=== PATIENT | female | born 2000 | race African-American/Black ===

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

== ENCOUNTER 2018-10-03 07:26 | Emergency (ER) | payer BC, MEDICAID, OTHER ==
[2018-10-03] MEDS ORDERED: Ondansetron PF 4 MG/2 ML Vial ONE (08:03)
[2018-10-03 08:43] LABS: #Basophils 0.1 thou/uL (0.0-0.2); #Eosinphils 0.1 thou/uL (0.0-0.7); #Neutrophils 9.9 thou/uL (1.40-6.50); %Basophils 0.9 % (0.0-1.0); %Eosinophils 0.9 % (0.0-10.0); %Lymphocytes 15.5 % (28.0-48.0); %Monocytes 7.5 % (0.0-4.0); %Neutrophils 75.3 % (31.0-61.0); Hemoglobin 11.9 g/dL (12.0-16.0); Mean Corpuscular HGB CONC 33.2 g/dL (32.0-36.0); Mean Corpuscular Hemoglobin 29.3 pg (25.0-35.0); Mean Corpuscular Volume 88.3 fL (78.0-98.0); Mean Platelet Volume 7.7 fL (7.4-10.4); Platelet Count 329 thou/uL (130-400); Red Blood Cell (RBC) Count 4.05 mill/uL (4.00-5.20); White Blood Cell (WBC) Count 13.1 thou/uL (4.8-10.8)
[2018-10-03 08:56] LABS: ALT (SGPT) 29 U/L (8-55); AST (SGOT) 24 U/L (5-34); Albumin 4.2 g/dL (3.5-5.0); Alkaline Phosphatase 42 U/L (40-150); Anion Gap 14 mmol/L (10-20); BUN (Urea Nitrogen) 8 mg/dL (7.0-18.7); Bilirubin, Total 0.3 mg/dL (0.2-1.2); Calc. Creatinine Clearance 0 mL/min (70-130); Calcium 9.8 mg/dL (7.8-10.44); Carbon Dioxide 24 mmol/L (22-29); Chloride 102 mmol/L (98-107); Estimated GFR-MDRD Greater than 90; Globulin 3.2 g/dL (2.4-3.5); Glucose 88 mg/dL (70-105); Potassium 3.9 mmol/L (3.5-5.1); Protein, Total 7.4 g/dL (6.0-8.3); Sodium 136 mmol/L (136-145)
[2018-10-03 09:18] LABS: Bilirubin Negative (Negative); Blood, Urine Negative (Negative); Clarity Clear (Clear); Glucose, Urine (Dipstick) Negative (Negative); Leukocyte Negative (Negative); Nitrite Negative (Negative); Protein, Urine (Dipstick) Negative (Neg-Trace); Specific Gravity, Urine 1.015 (1.005-1.030); Urobilinogen 0.2 mg/dL (0.2-1.0)
--- NOTE | 2018-10-03 09:26 | ULT ---
OBSTETRICAL SONOGRAPHIC: HISTORY: Early . Pelvic pain. TECHNIQUE: Transabdominal and transvaginal imaging with duplex evaluation. FINDINGS: The urinary bladder is decompressed. The uterus measures up to 8.7 cm and contains a gestational sac with a small yolk sac. No pole is yet visible. Measurements correlate with 6 weeks 4 days gestational size. Estimated date of delivery is 9. No free fluid is apparent within the pelvis. The right ovary is 3 cm and the left is 3.8 cm. Each h as a normal appearance with good color and spectral Doppler flow. IMPRESSION: Single, very early intrauterine gestational sac. pole not yet visible. Measurements correlate with 6 weeks' 4 days' gestational age. No significant abnormalities are demonstrated. POS: [facility]
== END 2018-10-03 10:06 | disposition home or self-care (01) ==
LOC: SCSER 07:26
DX: O21.9 Vomiting of pregnancy, unspecified (principal); O99.341 Other mental disorders complicating pregnancy, first trimester; F41.9 Anxiety disorder, unspecified; O99.351 Diseases of the nervous system complicating pregnancy, first trimester; G43.909 Migraine, unspecified, not intractable, without status migrainosus; Z3A.01 Less than 8 weeks gestation of pregnancy
CPT/HCPCS: 36415; 76856; 80053; 81003; 84702; 85025; 96361; 96374; J2405

== ENCOUNTER 2018-10-11 17:55 | Emergency (ER) | payer OTHER ==
[2018-10-11 18:56] LABS: Bilirubin Negative (Negative); Blood, Urine Negative (Negative); Clarity Slightly Cloudy (Clear); Glucose, Urine (Dipstick) Negative (Negative); Leukocyte Negative (Negative); Nitrite Negative (Negative); Protein, Urine (Dipstick) Negative (Neg-Trace); Specific Gravity, Urine 1.025 (1.005-1.030)
[2018-10-11 19:16] LABS: #Basophils 0.1 thou/uL (0.0-0.2); #Eosinphils 0.1 thou/uL (0.0-0.7); #Lymphocytes 2.7 thou/uL (1.20-3.40); #Monocytes 1.3 thou/uL (0.11-0.59); #Neutrophils 12.1 thou/uL (1.40-6.50); %Basophils 0.7 % (0.0-1.0); %Eosinophils 0.7 % (0.0-10.0); %Lymphocytes 16.4 % (28.0-48.0); %Monocytes 7.7 % (0.0-4.0); %Neutrophils 74.4 % (31.0-61.0); Hemoglobin 11.8 g/dL (12.0-16.0); Mean Corpuscular HGB CONC 33.6 g/dL (32.0-36.0); Mean Corpuscular Hemoglobin 29.7 pg (25.0-35.0); Mean Corpuscular Volume 88.3 fL (78.0-98.0); Mean Platelet Volume 8.9 fL (7.4-10.4); Platelet Count 316 thou/uL (130-400); RBC Distribution Width 14.1 % (11.5-14.5); Red Blood Cell (RBC) Count 3.98 mill/uL (4.00-5.20); White Blood Cell (WBC) Count 16.3 thou/uL (4.8-10.8)
--- NOTE | 2018-10-11 20:28 | ULT ---
PELVIC ULTRASOUND: 10/11/18 Transabdominal ultrasound of pelvis performed. INDICATIONS: Vaginal spotting. FINDINGS: There is a viable intrauterine . A gestational sac is identified. A pole is identified . A yolk sac is identified. A crown-rump length indicates a 7 week, 0 day gestational age. A he art rate is recorded at 150 beats per minute. There is a myometrial prominence which impinges on the gestational sac suggesting a myometrial fibroi d. There is an area of hypoechogenicity seen along the posterior border of the gestational sac measuring approximately 1 to 2 cm which may represent a small area of subchorionic hemorrhage. Both maternal ovaries are identified and appear unremarkable. Color doppler and spectral analysis dem onstrates blood flow to both ovaries. IMPRESSION: 1. A viable intrauterine gestation. [place]-rump length indicates a 7 week, 0 day gestational age. 2. Hypoechoic area may represent a small subchorionic hemorrhage. 3. Evidence of a myometrial fibroid which produces some mass effect on the gestational sac. POS: [facility]
== END 2018-10-11 20:04 | disposition home or self-care (01) ==
LOC: SCSER 17:55
DX: O20.0 Threatened abortion (principal); O99.351 Diseases of the nervous system complicating pregnancy, first trimester; G43.909 Migraine, unspecified, not intractable, without status migrainosus; O99.341 Other mental disorders complicating pregnancy, first trimester; F41.9 Anxiety disorder, unspecified; Z3A.01 Less than 8 weeks gestation of pregnancy
CPT/HCPCS: 36415; 76805; 76815; 81003; 84702; 85025; 86900; 86901

== ENCOUNTER 2019-05-01 03:56 | Observation (INO) | payer OTHER ==
[2019-05-01 04:37] LABS: ALT (SGPT) 15 U/L (8-55); AST (SGOT) 18 U/L (5-34); Albumin 3.3 g/dL (3.5-5.0); Alkaline Phosphatase 123 U/L (40-150); Anion Gap 15 mmol/L (10-20); BUN (Urea Nitrogen) 4 mg/dL (7.0-18.7); Bilirubin, Total 0.3 mg/dL (0.2-1.2); Calc. Creatinine Clearance 0 mL/min (70-130); Calcium 8.6 mg/dL (7.8-10.44); Carbon Dioxide 21 mmol/L (22-29); Chloride 105 mmol/L (98-107); Estimated GFR-MDRD Greater than 90; Glucose 97 mg/dL (70-105); Potassium 3.5 mmol/L (3.5-5.1); Protein, Total 6.3 g/dL (6.0-8.3); Sodium 137 mmol/L (136-145)
[2019-05-01 04:40] LABS: Eosinophils 1 % (0-10); Hemoglobin 9.8 g/dL (12.0-16.0); Lymphocytes 11 % (21-51); MDiff Complete? YES; Mean Corpuscular HGB CONC 33.1 g/dL (32.0-36.0); Mean Corpuscular Hemoglobin 29.5 pg (27.0-31.0); Mean Corpuscular Volume 89.2 fL (78.0-98.0); Mean Platelet Volume 8.6 fL (7.4-10.4); Monocytes 4 % (0-10); Neutrophil 84 % (42-75); Platelet Count 248 thou/uL (130-400); RBC Distribution Width 14.3 % (11.5-14.5); White Blood Cell (WBC) Count 13.1 thou/uL (4.8-10.8)
[2019-05-01 05:19] VITALS: BP 126/76; TEMP 98.4; BMI 32.2
[2019-05-01] MEDS ORDERED: hydrALAZINE 20 MG/ML VIAL SLOW IVP PRN (05:47)
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
== END 2019-05-01 11:00 | disposition home health service (06) ==
LOC: SCSER 03:56 → EEVIPCON 03:56 → L&D 04:15
PROVIDERS: ADMIT Obstetrics & Gynecology; ATTEND Obstetrics & Gynecology
DX: O9A.213 Injury, poisoning and certain other consequences of external causes complicating pregnancy, third trimester (principal); S09.90XA Unspecified injury of head, initial encounter; O99.89 Other specified diseases and conditions complicating pregnancy, childbirth and the puerperium; R10.30 Lower abdominal pain, unspecified; O13.3 Gestational [pregnancy-induced] hypertension without significant proteinuria, third trimester; O99.343 Other mental disorders complicating pregnancy, third trimester; F41.9 Anxiety disorder, unspecified; Z3A.36 36 weeks gestation of pregnancy; Z88.8 Allergy status to other drugs, medicaments and biological substances; Y04.2XXA Assault by strike against or bumped into by another person, initial encounter; Y07.03 Male partner, perpetrator of maltreatment and neglect
CPT/HCPCS: 76815; 80053; 85025; 86850; 86900; 86901; 99283; 99284; G0378

== ENCOUNTER 2019-05-10 21:26 | Inpatient (IN) | payer OTHER ==
[2019-05-10] MEDS ORDERED: hydrALAZINE 20 MG/ML VIAL SLOW IVP PRN (22:11)
--- NOTE | 2019-05-10 22:23 | PDOC.LDHP ---
Labor and Delivery H&P Chief complaint: other (High BP at hnmw=275/100 with HAearlier) HPI: Patient of dr Suárez 19 yo G2Po at 37 weeks 6 days here for high BPs at home and recent CEJA. Good FM, no visual changes, no RUQ pain. No VB, no LOF Review of Systems: complete ROS done and as per HPI Current gestational age (weeks): 37 (6 days) Dating criteria: last menstrual period Grav: 2 Para: 0 Current complications: hypertension Abnormal US findings: No Past Medical History: None had some high BPs in office Current medications: pre-heather vitamins Previous surgical history: other (D&C) Allergies/Adverse Reactions: Allergies Allergy/AdvReac Type Severity Reaction Status Date / Time ibuprofen AdvReac Verified 05/10/19 21:52 [From DayQuil Sinus Pressure/Pain] pseudoephedrine AdvReac Verified 05/10/19 21:52 [From DayQuil Sinus Pressure/Pain] - Physical Exam Abnormal vital signs: 140/90s here General: NAD Heart: RRR Lungs: CTAB Abdomen: gravid Extremeties: no edema FHT: category 1 [place] contractions every: none - Vaginal Exam cm dilated: 1 (ceph) Effacement: 25% Station: -3 - Assessment L&D Assessment: medically indicated induction (PIH and we will do PIH labs; 37 weeks 6 days; check GBS result=POS; PNG) - Plan Plan: admit to L&D, cervical ripening (cytotec), labor augmentation if indicated , GBS antibiotic prophylaxis, informed consent obtained, magnesium for seizure prophylaxis (once in labor), anesthesia consult for pain management, other (Dr Good notified by [place] text)
[2019-05-10] MEDS ORDERED: Calcium Gluc 4.6 MEQ/10 ML (100 MG/ML) SLOW IVP PRN (22:30)
[2019-05-10] MEDS ORDERED: Ondansetron PF 4 MG/2 ML Vial IVP PRN (22:30)
[2019-05-10] MEDS ORDERED: Acetaminophen 500 MG TAB PO SCH (22:30)
[2019-05-10] MEDS ORDERED: Lidocaine 1% (PF) 30 ML VIAL SC PRN (22:30)
[2019-05-10] MEDS ORDERED: Promethazine HCl 25 MG/ML VIAL IM PRN (22:30)
[2019-05-10] MEDS ORDERED: NS / Oxytocin 40 units/1000ml 1,000 ML IV PRN (22:30)
[2019-05-10] MEDS ORDERED: Acetaminophen 500 MG TAB PO PRN (22:30)
[2019-05-10] MEDS ORDERED: Magnesium Sulfate 20 GM/WATER 500 ML BAG IVPB SCH (22:45)
[2019-05-10] MEDS ORDERED: NS w/ Oxytocin 10 units 500 ML IV SCH (23:00)
[2019-05-10] MEDS ORDERED: Penicillin G Potassium 5 MILL.UNITS in Sodium Chloride 0.9% 100 ML IVPB SCH (23:00)
[2019-05-10] MEDS ORDERED: Magnesium Sulfate 20 gm/500 ml 20 GM/500 ML BAG IVPB SCH (23:00)
[2019-05-10] MEDS: Lactated Ringer's 1,000 ML IV SCH (23:41)
[2019-05-10] MEDS: Misoprostol 100 MCG TAB VAG SCH (23:42)
[2019-05-10 23:45] VITALS: BMI 32.1
[2019-05-11 00:44] LABS: #Eosinphils 0.1 thou/uL (0.0-0.7); #Lymphocytes 2.6 thou/uL (1.20-3.40); #Monocytes 1.2 thou/uL (0.11-0.59); #Neutrophils 9.2 thou/uL (1.40-6.50); %Basophils 0.2 % (0.0-1.0); %Eosinophils 0.9 % (0.0-10.0); %Lymphocytes 19.5 % (21.0-51.0); %Monocytes 9.2 % (0.0-10.0); %Neutrophils 70.2 % (42.0-75.0); Hemoglobin 9.8 g/dL (12.0-16.0); Mean Corpuscular HGB CONC 33.3 g/dL (32.0-36.0); Mean Corpuscular Hemoglobin 29.6 pg (27.0-31.0); Mean Corpuscular Volume 88.8 fL (78.0-98.0); Platelet Count 208 thou/uL (130-400); RBC Distribution Width 14.1 % (11.5-14.5); White Blood Cell (WBC) Count 13.1 thou/uL (4.8-10.8)
[2019-05-11 01:06] LABS: ALT (SGPT) 9 U/L (8-55); AST (SGOT) 14 U/L (5-34); Albumin 3.4 g/dL (3.5-5.0); Alkaline Phosphatase 156 U/L (40-110); Anion Gap 12 mmol/L (10-20); BUN (Urea Nitrogen) Less than 4 mg/dL (7.0-18.7); Bilirubin, Total 0.4 mg/dL (0.2-1.2); Calc. Creatinine Clearance 202 mL/min (70-130); Calcium 8.7 mg/dL (7.8-10.44); Carbon Dioxide 23 mmol/L (22-29); Chloride 105 mmol/L (98-107); Estimated GFR-MDRD Greater than 90; Glucose 75 mg/dL (70-105); Potassium 3.4 mmol/L (3.5-5.1); Protein, Total 6.4 g/dL (6.0-8.3); Sodium 137 mmol/L (136-145)
[2019-05-11 01:06] LABS: Creatinine, Urine 132.06 mg/dL (47-110)
[2019-05-11 01:25] LABS: HBSAg Index 0.12 S/CO (0-0.99); Hep B Surf Ag Non-Reactive S/CO (NonReactive)
[2019-05-11 04:29] LABS: Syphilis Antibody Nonreactive (Nonreactive); Syphilis Antibody Index 0.04 S/CO (<1.00 Non-Reactive)
[2019-05-11] MEDS ORDERED: Penicillin G Potassium 5 MILL.UNITS VIAL ONE (06:27)
[2019-05-11] MEDS: Misoprostol 100 MCG TAB VAG SCH ×3 (06:31→14:49)
[2019-05-11] MEDS ORDERED: Butorphanol Tartrate 1 MG/ML VIAL ONE (06:37)
[2019-05-11] MEDS ORDERED: Fentanyl 4 mcg/Bup 0.1% Cadd 100 ML ONE ×2 (07:26→14:59)
[2019-05-11] MEDS ORDERED: Lactated Ringer's 500 ML IV PRN (08:33)
[2019-05-11] MEDS ORDERED: Naloxone HCl 0.4 mg/ml Vial IVP PRN ×2 (08:33)
[2019-05-11] MEDS ORDERED: ePHEDrine/0.9% NaCl/PF SYRINGE 50 mg/10 ml SLOW IVP PRN (08:33)
[2019-05-11] MEDS ORDERED: diphenhydrAMINE 50 MG/ML VIAL IVP PRN (08:33)
[2019-05-11] MEDS ORDERED: Ondansetron PF 4 MG/2 ML Vial IVP PRN (08:33)
[2019-05-11] MEDS ORDERED: Promethazine HCl 25 MG/ML VIAL IM PRN (08:33)
[2019-05-11] MEDS ORDERED: Communication Order-Pharmacy FS SCH (08:45)
[2019-05-11] MEDS ORDERED: Fentanyl 4 mcg/Bupivacaine 0.1% Cassette 100 ML EPIDURAL SCH (08:45)
[2019-05-11] MEDS: Lactated Ringer's 1,000 ML IV SCH ×2 (09:00→10:29)
[2019-05-11] MEDS: NS w/ Oxytocin 10 units 500 ML IV SCH (09:25)
--- NOTE | 2019-05-11 10:18 | PDOC.LDPN ---
Labor & Delivery Progress Note - Subjective Subjective: comfortable - Objective Abnormal vital signs: normal - mild range BPs General: NAD Uterine fundus: non tender Dilation: 4 Effacement: 50% Station: -2 FHT: category 1 (120s, mod yaron, +accels, no decels ) [place] contractions every: q2-4 min AROM: clear fluid IUPC placed: yes - Assessment (1) Gestational hypertension Code(s): O13.9 - GESTATIONAL HTN W/O SIGNIFICANT PROTEINURIA, UNSP TRIMESTER Current Visit: Yes Status: Acute (2) 38 weeks gestation of Code(s): Z3A.38 - 38 WEEKS GESTATION OF Current Visit: Yes Status : Acute (3) Encounter for induction of labor Code(s): Z34.90 - ENCNTR FOR SUPRVSN OF NORMAL , UNSP, UNSP TRIMESTER Current Visit: Yes Status: Acute -: Continue IOL, now on pitocin GBS PPX Labs wnl, BPs normal - mild range and H/A resolved. No indication for mag at this time. Monitor BPs.
[2019-05-11] MEDS: Penicillin G 2.5 MILL.units 2.5 MILL.UNITS in Premix Bag 1 BAG IVPB SCH ×3 (10:44→18:17)
[2019-05-11] MEDS ORDERED: Bupivacaine/Epinephrine 0.25% 30 ML VIAL ONE (11:11)
[2019-05-11] MEDS ORDERED: NS / Oxytocin 40 units/1000ml 1,000 ML ONE (16:48)
[2019-05-11] MEDS ORDERED: Lidocaine 1% (PF) 30 ML VIAL ONE (16:48)
--- NOTE | 2019-05-11 17:14 | PDOC.EVN ---
Event Note - Event Note Event Note: precipitously delivered. I was notified after delivered. OB, Dr. Andersen assisted with repair and delivery of placenta. Please see his note. Discussed with mother and family. Mother and baby doing well.
[2019-05-11] MEDS ORDERED: Misoprostol 200 MCG TAB VAG PRN (17:54)
[2019-05-11] MEDS ORDERED: diphenhydrAMINE 25 MG CAP PO PRN (17:54)
[2019-05-11] MEDS ORDERED: Lanolin Ointment 7 GM TUBE TOP PRN (17:54)
[2019-05-11] MEDS ORDERED: Milk Of Magnesia 30 ML UDCUP PO PRN (17:54)
[2019-05-11] MEDS ORDERED: Benzocaine-Menthol 82.5 ML CAN TOP PRN (17:54)
[2019-05-11] MEDS ORDERED: hydrALAZINE 20 MG/ML VIAL SLOW IVP PRN (17:54)
[2019-05-11] MEDS ORDERED: Bisacodyl 10 MG SUPP PR PRN (17:54)
[2019-05-11] MEDS ORDERED: NS / Oxytocin 40 units/1000ml 1,000 ML IV SCH (17:54)
[2019-05-11] MEDS: Acetaminophen 325 MG TAB PO PRN (18:16)
[2019-05-11] MEDS ORDERED: Ibuprofen 800 MG TAB PO SCH (22:00)
[2019-05-12 04:27] LABS: Hemoglobin 9.4 g/dL (12.0-16.0); Mean Corpuscular HGB CONC 32.8 g/dL (32.0-36.0); Mean Corpuscular Hemoglobin 29.6 pg (27.0-31.0); Mean Corpuscular Volume 90.4 fL (78.0-98.0); Platelet Count 204 thou/uL (130-400); RBC Distribution Width 14.1 % (11.5-14.5); Red Blood Cell (RBC) Count 3.17 mill/uL (4.20-5.40); White Blood Cell (WBC) Count 19.8 thou/uL (4.8-10.8)
[2019-05-12] MEDS: Acetaminophen 325 MG TAB PO PRN ×2 (06:37→23:04)
[2019-05-12] MEDS: Docusate Calcium (SURFAK) 240 MG CAP PO SCH ×3 (06:39→23:04)
--- NOTE | 2019-05-12 08:13 | PRG ---
DATE OF SERVICE: 05/12/2019 PRIMARY CHARGE AUTHORIZER: Dr. Bonny Good. SUBJECTIVE: The patient is day 1, status post an unwitnessed delivery complicated only by a first-degree laceration. The patient reports today that she is tolerating p.o., voiding on her own, having decreased lochia, and good pain control. OBJECTIVE: VITAL SIGNS: This morning, blood pressure is 129/77, temperature of 98.4, pulse of 81, respiratory rate of 17. GENERAL: She appears to be in no acute distress. She is alert, oriented, cooperative, and pleasant to interact with. HEENT: Head is normocephalic and atraumatic. LUNGS: Clear to auscultation bilaterally. GENITOURINARY: Fundus is firm. EXTREMITIES: Nontender, nonedematous. LABORATORY DATA: Post-delivery hemoglobin is 9.4, hematocrit is 28.6. ASSESSMENT AND PLAN: The patient is day 1, status post a term spontaneous vaginal delivery. Anticipate discharge tomorrow. Job ID: [id number]
[2019-05-12] MEDS: Prenatal Vitamin 1 TAB PO SCH (08:24)
[2019-05-12] MEDS: Ferrous Sulfate 325 MG TAB PO SCH ×2 (08:24→17:43)
[2019-05-12] MEDS: NS w/ Oxytocin 10 units 500 ML IV SCH ×2 (08:41→23:05)
[2019-05-12] MEDS: Penicillin G 2.5 MILL.units 2.5 MILL.UNITS in Premix Bag 1 BAG IVPB SCH (08:42)
[2019-05-12] MEDS: Misoprostol 100 MCG TAB VAG SCH (08:42)
[2019-05-12] MEDS: HYDROcodone/Acetaminophen 5/325 mg Tablet PO PRN (17:44)
--- NOTE | 2019-05-12 19:53 | PDOC.OPDEL ---
OB Operative/Delivery Note Delivery Dr/Surgeon: Primary OB: Bonny Good Assist: [facility] assisting after infant delivered: Hossein Law Pre-Delivery Diagnosis: medically indicated induction Procedure/Post Delivery Dx: spontaneous vaginal delivery Weeks gestation: 38 Anesthesia: epidural - Findings A Sex: female - 1 min: 8 - 5 min: 9 - Additional Findings/Plan Placenta delivered: spontaneous Repaired Obstetrical Laceration: 1st degree (repaired by Dr. Andersen) Estimated blood loss: EBL 50 cc Compilations/Other Findings: LATE entry note: Pt has rapid progression with precipitous delivery of 2nd stage. was delivered in the bed. RNs came to room promptly. Dr. Andersen ([facility]) was called to room and her performed 1st degree laceration repair and delivery of placenta. I reviewed with pt when I arrived, shortly after delivery Post delivery plan: routine recovery
[2019-05-13] MEDS: HYDROcodone/Acetaminophen 5/325 mg Tablet PO PRN (08:27)
[2019-05-13] MEDS: Docusate Calcium (SURFAK) 240 MG CAP PO SCH ×2 (08:27→22:42)
[2019-05-13] MEDS: Ferrous Sulfate 325 MG TAB PO SCH ×2 (08:27→17:06)
[2019-05-13] MEDS: Prenatal Vitamin 1 TAB PO SCH (08:27)
--- NOTE | 2019-05-13 10:13 | PDOC.PP ---
Post Progress Note Post Day #: 2 Subjective: Pt seen and evaluated on PPD2. Pt is doing well. She has minimal pain and decrease lochia. She is bottle feeding only at this time. She has been up and ambulatory. She is urinating witout difficulty. No leg pain or swelling. PO intake tolerated: yes Flatus: yes Ambulation: yes Vital Signs (12 hours) Temp Pulse Resp BP Pulse Ox 05/13/19 08:01 98.2 F 61 18 158/89 H 99 05/13/19 08:00 99 Weight Weight 181 lb - Physical Examination Respiratory: non-labored breathing Abdominal: + bowel sounds, lochia, no distention, appropriately TTP Extremities: negative homans (B) Neurological: no gross focal deficits Psychiatric: normal affect Result Diagrams: 05/12/19 03:52 05/11/19 00:25 Additional Labs: Post Labs Blood Type O POSITIVE 05/11/19 00:25 Hep Bs Antigen Non-Reactive S/CO (NonReactive) 05/11/19 00:25 - Assessment/Plan BP is now noted to elevated. Pt got upset due to baby crying. She is asymptomatic at this time. Plan to recheck in a few hours when she is more relaxed. If elevated or in severe range will discussed with Dr. Good and plan to initiate treatment.
--- NOTE | 2019-05-13 12:02 | PDOC.EVN ---
Event Note - Event Note Event Note: Notified by RN that pt BP now severe range x 2. BPs had been normal-mild range prior. Repeat 170/94. Per RN, pt anxious, however, due to new onset severe range BPs D/C held. Pt denies other preE sx. Labetalol 20 mg IV now and start procardia XL 30 mg QD. Will monitor. If progresses, consider PP mag.
[2019-05-13] MEDS ORDERED: Labetalol HCl 100 MG/20 ML VIAL SLOW IVP SCH ×2 (12:15→16:45)
[2019-05-13] MEDS ORDERED: NIFEdipine XL 30 MG TAB PO SCH (13:00)
[2019-05-13] MEDS ORDERED: hydrALAZINE 20 MG/ML VIAL SLOW IVP PRN (19:24)
[2019-05-13] MEDS ORDERED: hydrALAZINE 20 MG/ML VIAL SLOW IVP SCH (20:00)
[2019-05-13] MEDS ORDERED: Sodium Chloride 0.9% 10 ML ONE (20:03)
--- NOTE | 2019-05-13 20:05 | PDOC.EVN ---
Event Note - Event Note Event Note: Notified by RN that pt has had severe range BP again. Pt has been given Labetalol 20 mg IV x2 and procardia 30 mg PO during the afternoon. Give Hydralazine 5 mg IV now and transfer to L&D for magnesium for seizure PPX/mag protocol. PreE labs ordered. Continue to monitor.
[2019-05-13 20:22] LABS: #Basophils 0.1 thou/uL (0.0-0.2); #Eosinphils 0.3 thou/uL (0.0-0.7); #Lymphocytes 2.2 thou/uL (1.20-3.40); #Monocytes 1.1 thou/uL (0.11-0.59); #Neutrophils 10.9 thou/uL (1.40-6.50); %Basophils 0.4 % (0.0-1.0); %Eosinophils 1.8 % (0.0-10.0); %Lymphocytes 14.9 % (21.0-51.0); %Monocytes 7.5 % (0.0-10.0); %Neutrophils 75.4 % (42.0-75.0); Hemoglobin 9.8 g/dL (12.0-16.0); Mean Corpuscular HGB CONC 33.1 g/dL (32.0-36.0); Mean Corpuscular Volume 90.7 fL (78.0-98.0); Mean Platelet Volume 8.4 fL (7.4-10.4); Platelet Count 246 thou/uL (130-400); RBC Distribution Width 14.2 % (11.5-14.5); Red Blood Cell (RBC) Count 3.28 mill/uL (4.20-5.40); White Blood Cell (WBC) Count 14.5 thou/uL (4.8-10.8)
[2019-05-13 20:34] LABS: ALT (SGPT) 11 U/L (8-55); AST (SGOT) 17 U/L (5-34); Albumin 3.2 g/dL (3.5-5.0); Alkaline Phosphatase 135 U/L (40-110); Anion Gap 12 mmol/L (10-20); BUN (Urea Nitrogen) Less than 4 mg/dL (7.0-18.7); Bilirubin, Total 0.3 mg/dL (0.2-1.2); Calc. Creatinine Clearance 199 mL/min (70-130); Calcium 8.7 mg/dL (7.8-10.44); Carbon Dioxide 27 mmol/L (22-29); Chloride 103 mmol/L (98-107); Estimated GFR-MDRD Greater than 90; Globulin 3.1 g/dL (2.4-3.5); Glucose 82 mg/dL (70-105); Protein, Total 6.3 g/dL (6.0-8.3); Sodium 139 mmol/L (136-145); Uric Acid 4.6 mg/dL (2.6-6.0)
[2019-05-13] MEDS ORDERED: Magnesium Sulfate 20 gm/500 ml 20 GM/500 ML BAG IVPB SCH (21:10)
[2019-05-13] MEDS ORDERED: Calcium Gluc 4.6 MEQ/10 ML (100 MG/ML) SLOW IVP PRN (21:10)
[2019-05-13] MEDS ORDERED: Magnesium Sulfate 20 GM/WATER 500 ML BAG IVPB SCH (21:10)
[2019-05-13] MEDS ORDERED: Magnesium Sulfate 20 gm/500 ml 20 GM/500 ML BAG ONE (21:16)
[2019-05-13] MEDS: Lactated Ringer's 1,000 ML IV SCH (21:38)
[2019-05-13 22:39] LABS: Creatinine, Urine Less than 20.00 mg/dL (47-110); Protein, Urine Random Quant Less than 10 mg/dL (1-14)
[2019-05-14] MEDS: Acetaminophen 325 MG TAB PO PRN ×2 (01:09→05:40)
[2019-05-14 06:57] LABS: #Basophils 0.1 thou/uL (0.0-0.2); #Eosinphils 0.3 thou/uL (0.0-0.7); #Monocytes 1.1 thou/uL (0.11-0.59); #Neutrophils 9.7 thou/uL (1.40-6.50); %Basophils 0.4 % (0.0-1.0); %Eosinophils 2.5 % (0.0-10.0); %Lymphocytes 15.1 % (21.0-51.0); %Monocytes 8.1 % (0.0-10.0); %Neutrophils 73.9 % (42.0-75.0); Hemoglobin 9.6 g/dL (12.0-16.0); Mean Corpuscular Hemoglobin 29.4 pg (27.0-31.0); Mean Platelet Volume 8.4 fL (7.4-10.4); Platelet Count 276 thou/uL (130-400); RBC Distribution Width 14.1 % (11.5-14.5); Red Blood Cell (RBC) Count 3.28 mill/uL (4.20-5.40); White Blood Cell (WBC) Count 13.1 thou/uL (4.8-10.8)
[2019-05-14 07:17] LABS: ALT (SGPT) 12 U/L (8-55); AST (SGOT) 18 U/L (5-34); Albumin 3.1 g/dL (3.5-5.0); Alkaline Phosphatase 126 U/L (40-110); Anion Gap 11 mmol/L (10-20); BUN (Urea Nitrogen) Less than 4 mg/dL (7.0-18.7); Bilirubin, Total 0.3 mg/dL (0.2-1.2); Calc. Creatinine Clearance 214 mL/min (70-130); Carbon Dioxide 27 mmol/L (22-29); Chloride 103 mmol/L (98-107); Estimated GFR-MDRD Greater than 90; Glucose 75 mg/dL (70-105); Protein, Total 6.1 g/dL (6.0-8.3); Sodium 138 mmol/L (136-145); Uric Acid 4.9 mg/dL (2.6-6.0)
[2019-05-14 07:23] LABS: Potassium 2.9 mmol/L (3.5-5.1)
--- NOTE | 2019-05-14 08:03 | PDOC.PP ---
Post Progress Note Post Day #: 3 Subjective: Pt c/o headache this AM. She recently took Tylenol. Denies any other pre E sx. LE edema has improved. BPs have been normal - mild overnight after starting mag. PO intake tolerated: yes Flatus: yes Ambulation: yes Vital Signs (12 hours) Temp Pulse Resp BP BP 05/13/19 22:13 98.8 F 82 18 136/73 05/13/19 20:35 99 18 129/80 05/13/19 20:12 68 163/106 H Weight Weight 181 lb - Physical Examination General: NAD Cardiovascular: no m/r/g, RRR Respiratory: clear to auscultation bilaterally, non-labored breathing Abdominal: no distention, appropriately TTP Fundus firm & at: below umbilicus Extremities: negative homans (B) Deviation from normal: 1+ edema, 2+ DTRs, no clonus Neurological: no gross focal deficits Psychiatric: A&Ox3, normal affect Result Diagrams: 05/14/19 06:25 05/14/19 06:25 Additional Labs: Post Labs Blood Type O POSITIVE 05/11/19 00:25 Hep Bs Antigen Non-Reactive S/CO (NonReactive) 05/11/19 00:25 (1) Gestational hypertension Code(s): O13.9 - GESTATIONAL HTN W/O SIGNIFICANT PROTEINURIA, UNSP TRIMESTER Status: Acute (2) 38 weeks gestation of Code(s): Z3A.38 - 38 WEEKS GESTATION OF Status: Resolved (3) Encounter for induction of labor Code(s): Z34.90 - ENCNTR FOR SUPRVSN OF NORMAL , UNSP, UNSP TRIMESTER Status: Resolved - Assessment/Plan PPD3 BPs recently mild. No additional IV anti-HTN required overnight. PreE labs wnl. UOP good. Continue mag and mag protocol. Tx hypokalemia with oral supplement. Allow clears to take oral K and [place] for h/a. Plan for d/c mag this afternoon.
[2019-05-14] MEDS: HYDROcodone/Acetaminophen 5/325 mg Tablet PO PRN (08:06)
[2019-05-14] MEDS ORDERED: Potassium Citrate 10 MEQ TAB PO SCH (09:00)
[2019-05-14] MEDS ORDERED: NIFEdipine XL 30 MG TAB PO SCH (09:00)
[2019-05-14] MEDS ORDERED: diphenhydrAMINE 50 MG/ML VIAL IVP PRN (14:11)
[2019-05-14] MEDS: Metoclopramide HCl 10 MG/2 ML VIAL IVP PRN ×2 (14:35→15:26)
[2019-05-14] MEDS ORDERED: NS / Oxytocin 40 units/1000ml 1,000 ML IV SCH (17:44)
[2019-05-14] MEDS ORDERED: Ondansetron PF 4 MG/2 ML Vial IVP PRN (17:44)
[2019-05-14] MEDS ORDERED: Bisacodyl 10 MG SUPP PR PRN (17:44)
[2019-05-14] MEDS ORDERED: Lanolin Ointment 7 GM TUBE TOP PRN (17:44)
[2019-05-14] MEDS ORDERED: Milk Of Magnesia 30 ML UDCUP PO PRN (17:44)
[2019-05-14] MEDS ORDERED: hydrALAZINE 20 MG/ML VIAL SLOW IVP PRN (17:44)
[2019-05-14] MEDS ORDERED: Benzocaine-Menthol 82.5 ML CAN TOP PRN (17:44)
[2019-05-14] MEDS ORDERED: Zolpidem Tartrate 5 MG TAB PO PRN (17:44)
[2019-05-14] MEDS: Ibuprofen 800 MG TAB PO SCH (18:16)
[2019-05-14] MEDS: Prenatal Vitamin 1 TAB PO SCH (18:19)
[2019-05-14] MEDS: Docusate Calcium (SURFAK) 240 MG CAP PO SCH ×2 (18:20→21:30)
[2019-05-14] MEDS: Ferrous Sulfate 325 MG TAB PO SCH ×2 (18:20→18:23)
[2019-05-14] MEDS: NS w/ Oxytocin 10 units 500 ML IV SCH (18:20)
[2019-05-14] MEDS: Lactated Ringer's 1,000 ML IV SCH (18:21)
[2019-05-15] MEDS ORDERED: Sodium Chloride 0.9% 10 ML ONE (00:53)
[2019-05-15] MEDS ORDERED: hydrALAZINE 20 MG/ML VIAL SLOW IVP PRN (01:09)
--- NOTE | 2019-05-15 01:12 | PDOC.EVN ---
Event Note - Event Note Event Note: Called for severe range BP. 160-180 systolic. Pt has been given hydralizine 5mg now. I have ordered 200mg labetolol now and started bid. hydralizine prn.
[2019-05-15] MEDS ORDERED: Labetalol 100 MG TAB PO SCH ×2 (01:15→09:00)
[2019-05-15] MEDS: Ibuprofen 800 MG TAB PO SCH ×3 (06:09→18:07)
--- NOTE | 2019-05-15 08:20 | PDOC.PP ---
Post Progress Note Post Day #: 4 Subjective: Feels much better. H/A has resolved. Denies any preE sx. Anxiety is improved, however, still present. She had severe BP overnight and was started on PO labetalol. PO intake tolerated: yes Flatus: yes Ambulation: yes Vital Signs (12 hours) Temp Pulse Resp BP BP Pulse Ox 05/15/19 08:03 98.7 F 84 20 158/95 H 98 05/15/19 04:00 98.1 F 82 18 151/87 H 05/15/19 01:57 98.1 F 78 18 156/94 H 05/15/19 01:18 81 171/108 H 05/15/19 01:17 81 18 171/108 H 05/15/19 00:55 100 05/15/19 00:48 77 18 182/105 H 05/15/19 00:34 158/100 H 05/15/19 00:33 97.6 F 68 18 169/108 H Weight Weight 181 lb - Physical Examination General: NAD Cardiovascular: RRR Respiratory: non-labored breathing Abdominal: no distention, appropriately TTP Fundus firm & at: below umbilicus Extremities: negative homans (B) Neurological: no gross focal deficits Psychiatric: A&Ox3, normal affect Result Diagrams: 05/14/19 06:25 05/14/19 06:25 Additional Labs: Post Labs Blood Type O POSITIVE 05/11/19 00:25 Hep Bs Antigen Non-Reactive S/CO (NonReactive) 05/11/19 00:25 (1) Gestational hypertension Code(s): O13.9 - GESTATIONAL HTN W/O SIGNIFICANT PROTEINURIA, UNSP TRIMESTER Status: Acute (2) 38 weeks gestation of Code(s): Z3A.38 - 38 WEEKS GESTATION OF Status: Resolved (3) Encounter for induction of labor Code(s): Z34.90 - ENCNTR FOR SUPRVSN OF NORMAL , UNSP, UNSP TRIMESTER Status: Resolved (4) Hypokalemia Code(s): E87.6 - HYPOKALEMIA Status: Acute - Assessment/Plan PPD4 s/p mag. Denies preE sx. BPs mild range this AM. Increase labetalol to 300 mg BID PO this AM. Repeat K this AM. If BPs normal - mild with increased dose and K wnl, will allow for d/c home today. PreE warnings reviewed with pt.
[2019-05-15] MEDS: Labetalol 100 MG TAB PO SCH ×2 (08:25→20:09)
[2019-05-15] MEDS: Docusate Calcium (SURFAK) 240 MG CAP PO SCH ×2 (08:26→20:10)
[2019-05-15] MEDS: Prenatal Vitamin 1 TAB PO SCH (08:26)
[2019-05-15] MEDS: Ferrous Sulfate 325 MG TAB PO SCH ×2 (08:26→18:09)
[2019-05-15] MEDS ORDERED: Prenatal Vitamin 1 TAB PO SCH (09:00)
[2019-05-15] MEDS ORDERED: Adacel (T-DAP) 0.5 ML SYRINGE IM ONE (09:00)
[2019-05-15 09:22] LABS: Potassium 3.2 mmol/L (3.5-5.1)
[2019-05-15] MEDS ORDERED: Potassium Citrate 10 MEQ TAB PO SCH (12:00)
--- NOTE | 2019-05-15 12:31 | PDOC.EVN ---
Event Note - Event Note Event Note: BPs still 150s/90s, add Lisinopril 10 mg now. Recheck BP @ 1400 and assess if able to d/c.
[2019-05-15] MEDS ORDERED: Lisinopril 10 MG TAB PO SCH (12:45)
[2019-05-15] MEDS ORDERED: hydrALAZINE 20 MG/ML VIAL SLOW IVP SCH (15:15)
--- NOTE | 2019-05-15 16:50 | PDOC.EVN ---
Event Note - Event Note Event Note: Severe range BP noted, treated with Hydralazine 10 mg IV with normal BP result. Cont Labetalol 300 mg BID and Lisinopril 10 mg added today. Monitor this evening , peak result of Lisinopril @ 7 hrs. Will adjust based on BPs. Determine if stable for d/c tomorrow.
[2019-05-16] MEDS: Ibuprofen 800 MG TAB PO SCH (04:45)
[2019-05-16 07:31] LABS: Potassium 3.6 mmol/L (3.5-5.1)
[2019-05-16] MEDS: Labetalol 100 MG TAB PO SCH (07:35)
--- NOTE | 2019-05-16 07:57 | PDOC.PP ---
Post Progress Note Post Day #: 5 Subjective: No concerns. Denies preE sx. Pt BPs mild throughout the night, noted elevated this AM. She reports that she gets very anxious at her 0800 BP check because she wants to go home and is nervous about her BP being high. PO intake tolerated: yes Flatus: yes Ambulation: yes Vital Signs (12 hours) Temp Pulse Resp BP Pulse Ox 05/16/19 04:46 98.2 F 85 16 158/94 H 05/16/19 00:15 98.4 F 91 15 149/86 H 05/15/19 20:09 103 H 05/15/19 20:00 98 Weight Weight 181 lb - Physical Examination General: NAD Cardiovascular: RRR Respiratory: non-labored breathing Abdominal: no distention, appropriately TTP Fundus firm & at: below umbilicus Extremities: negative homans (B) Neurological: no gross focal deficits Psychiatric: A&Ox3, normal affect Result Diagrams: 05/14/19 06:25 05/16/19 06:56 Additional Labs: Post Labs Blood Type O POSITIVE 05/11/19 00:25 Hep Bs Antigen Non-Reactive S/CO (NonReactive) 05/11/19 00:25 (1) Gestational hypertension Code(s): O13.9 - GESTATIONAL HTN W/O SIGNIFICANT PROTEINURIA, UNSP TRIMESTER Status: Acute (2) 38 weeks gestation of Code(s): Z3A.38 - 38 WEEKS GESTATION OF Status: Resolved (3) Encounter for induction of labor Code(s): Z34.90 - ENCNTR FOR SUPRVSN OF NORMAL , UNSP, UNSP TRIMESTER Status: Resolved (4) Hypokalemia Code(s): E87.6 - HYPOKALEMIA Status: Resolved - Assessment/Plan PPD5 Most BPs normal-mild with new regimen of Lisinopril and Labetalol. Give oral meds this AM and plan for d/c today. BP parameters reviewed and pt given BP monitoring instructions. PreE sx reviewed with pt. RTC 1 week for BP check.
[2019-05-16] MEDS: Prenatal Vitamin 1 TAB PO SCH (08:05)
[2019-05-16] MEDS: Ferrous Sulfate 325 MG TAB PO SCH (08:08)
[2019-05-16] MEDS: Docusate Calcium (SURFAK) 240 MG CAP PO SCH (08:09)
[2019-05-16 08:15] VITALS: TEMP 98.6
[2019-05-16] MEDS ORDERED: Lisinopril 10 MG TAB PO SCH (09:00)
[2019-05-16 10:22] VITALS: BP 156/97
== END 2019-05-16 11:14 | disposition home or self-care (01) | DRG 807 ==
LOC: L&D/OP 21:26 → L&D 22:35 → 3SW 05-11 20:52 → L&D 05-13 21:20 → 3SW 05-14 17:29
PROVIDERS: ADMIT Obstetrics & Gynecology; ATTEND Obstetrics & Gynecology
PROC: 10E0XZZ Delivery of Products of Conception, External Approach (ICD-10-PCS; principal; 2019-05-12)
PROC: 0HQ9XZZ Repair Perineum Skin, External Approach (ICD-10-PCS; 2019-05-12)
PROC: 3E0P7VZ Introduction of Hormone into Female Reproductive, Via Natural or Artificial Opening (ICD-10-PCS; 2019-05-12)
DX: O13.4 Gestational [pregnancy-induced] hypertension without significant proteinuria, complicating childbirth (principal); Z37.0 Single live birth; Z3A.37 37 weeks gestation of pregnancy; O99.344 Other mental disorders complicating childbirth; O70.0 First degree perineal laceration during delivery; O62.3 Precipitate labor; O99.824 Streptococcus B carrier state complicating childbirth; O99.284 Endocrine, nutritional and metabolic diseases complicating childbirth; F41.9 Anxiety disorder, unspecified; E87.6 Hypokalemia; Z88.8 Allergy status to other drugs, medicaments and biological substances
CPT/HCPCS: 36415; 51702; 80053; 82570; 83735; 84132; 84156; 84550; 85025; 85027; 86780; 86850; 86900; 86901; 87340; 99285; J0360; J0595; J1200; J2001; J2405; J2540; J2590; J2765; J3475

== ENCOUNTER 2019-05-17 18:07 | Emergency (ER) | payer OTHER ==
[2019-05-17 19:37] LABS: Bilirubin Negative (Negative); Blood, Urine Large (Negative); Clarity Hazy (Clear); Glucose, Urine (Dipstick) Negative (Negative); Leukocyte Small (Negative); Nitrite Negative (Negative); Protein, Urine (Dipstick) Negative (Neg-Trace); WBC/HPF 0-3 HPF (0-3)
[2019-05-17 19:38] LABS: Bacteria/HPF Rare-Few HPF (None Seen)
[2019-05-17] MEDS ORDERED: Metoprolol Tartrate 50 MG TAB ONE (19:58)
== END 2019-05-17 20:55 | disposition left against medical advice (07) ==
LOC: SCSER 18:07
DX: O16.5 Unspecified maternal hypertension, complicating the puerperium (principal); G43.909 Migraine, unspecified, not intractable, without status migrainosus; F41.9 Anxiety disorder, unspecified
CPT/HCPCS: 81003; 81015

== ENCOUNTER 2019-05-19 17:18 | Inpatient (IN) | payer OTHER ==
[2019-05-19 17:51] LABS: #Eosinphils 0.2 thou/uL (0.0-0.7); #Lymphocytes 2.4 thou/uL (1.20-3.40); #Monocytes 0.8 thou/uL (0.11-0.59); #Neutrophils 6.4 thou/uL (1.40-6.50); %Basophils 0.4 % (0.0-1.0); %Eosinophils 2.5 % (0.0-10.0); %Lymphocytes 23.9 % (21.0-51.0); %Monocytes 8.3 % (0.0-10.0); %Neutrophils 64.8 % (42.0-75.0); Hemoglobin 11.2 g/dL (12.0-16.0); Mean Corpuscular HGB CONC 32.3 g/dL (32.0-36.0); Mean Corpuscular Hemoglobin 29.3 pg (27.0-31.0); Mean Corpuscular Volume 90.7 fL (78.0-98.0); Platelet Count 414 thou/uL (130-400); RBC Distribution Width 13.9 % (11.5-14.5); Red Blood Cell (RBC) Count 3.82 mill/uL (4.20-5.40); White Blood Cell (WBC) Count 9.9 thou/uL (4.8-10.8)
[2019-05-19 18:11] LABS: ALT (SGPT) 11 U/L (8-55); AST (SGOT) 13 U/L (5-34); Albumin 3.9 g/dL (3.5-5.0); Alkaline Phosphatase 125 U/L (40-110); Anion Gap 14 mmol/L (10-20); BUN (Urea Nitrogen) 10 mg/dL (7.0-18.7); Bilirubin, Total 0.3 mg/dL (0.2-1.2); Calc. Creatinine Clearance 0 mL/min (70-130); Calcium 9.5 mg/dL (7.8-10.44); Carbon Dioxide 26 mmol/L (22-29); Chloride 103 mmol/L (98-107); Estimated GFR-MDRD Greater than 90; Globulin 3.6 g/dL (2.4-3.5); Glucose 97 mg/dL (70-105); Potassium 3.6 mmol/L (3.5-5.1); Protein, Total 7.5 g/dL (6.0-8.3); Sodium 139 mmol/L (136-145); Uric Acid 6.6 mg/dL (2.6-6.0)
[2019-05-19 18:45] LABS: Bacteria/HPF None Seen HPF (None Seen); Bilirubin Negative (Negative); Blood, Urine 2+ (Negative); Clarity Clear (Clear); Glucose, Urine (Dipstick) Normal (Negative); Leukocyte 250 Leu/uL (Negative); Nitrite Negative (Negative); Protein, Urine (Dipstick) Negative (Neg-Trace); Squamous Epithelial 0-3 HPF (0-3); Urobilinogen 3 mg/dL (Less than 2); WBC/HPF 0-3 HPF (0-3)
[2019-05-19] MEDS ORDERED: Labetalol HCl 100 MG/20 ML VIAL ONE (20:29)
[2019-05-19] MEDS ORDERED: Labetalol HCl 100 MG/20 ML VIAL SLOW IVP PRN ×2 (20:36→21:05)
[2019-05-19] MEDS ORDERED: Labetalol HCl 100 MG/20 ML VIAL SLOW IVP SCH (20:45)
[2019-05-19] MEDS ORDERED: Labetalol 100 MG TAB PO SCH (21:00)
[2019-05-19] MEDS ORDERED: Lisinopril 10 MG TAB PO SCH (21:00)
[2019-05-19] MEDS ORDERED: Magnesium Sulfate 20 gm/500 ml 20 GM/500 ML BAG ONE (21:19)
[2019-05-19] MEDS ORDERED: Calcium Gluconate 4.6 MEQ in Sodium Chloride 0.9% 100 ML IVPB PRN (21:22)
[2019-05-19] MEDS ORDERED: Ondansetron PF 4 MG/2 ML Vial IVP PRN (21:23)
[2019-05-19] MEDS ORDERED: hydrALAZINE 20 MG/ML VIAL SLOW IVP PRN (21:23)
[2019-05-19] MEDS ORDERED: ALPRAZolam 0.5 MG TAB PO SCH (21:30)
[2019-05-19] MEDS ORDERED: Magnesium Sulfate 20 GM/WATER 500 ML BAG IVPB SCH (21:30)
[2019-05-19] MEDS: Hydrochlorothiazide 25 MG TAB PO SCH (21:43)
[2019-05-20] MEDS ORDERED: cloNIDine 0.1 MG TAB PO PRN (00:54)
--- NOTE | 2019-05-20 01:16 | PDOC.EVN ---
Event Note - Event Note Event Note: Thank you for the consultation feel free to give us a call for any further questions, Pt has been seen at bedside, she is asymptomatic , seems to be stable, has had difficult to control hypertension. Pt is , not breast feeding. Would recommend the following changes in medications for optimal control of bp. switch from labetalol po to coreg 12.5 mg bid, hold if HR<55 increase Lisinopril to 20 mg BID. Continue hydrochlorothiazide 12.5 mg /day. first line PRN medication: start clonidine 0.1 mg q 4 hr PRN for BP>150/100 second line PRN meds, continue hydralazine 10 mg q 4 hr prn if not controlled with above BP>150/100 Medications will need further adjustment based on pt's response, being preclampsia in the period , hypertensive episode could be transitory and resolve in the next coming weeks. therefore she might not need this doses ofr meds by then. if after this efforts BP is still not controlled pt might need to be started on cardene drip in the ICU Thank you for the consultation feel free to call us for any further ecommendations, we will be available to treat jesseeur patient with you if conitnues to be uncontrolled full note to be dictated
[2019-05-20] MEDS: Magnesium Sulfate 20 gm/500 ml 20 GM/500 ML BAG IVPB SCH ×2 (05:33→14:36)
--- NOTE | 2019-05-20 06:42 | CON ---
DATE OF CONSULTATION: REQUESTING PHYSICIAN: [facility] Service. PRIMARY CARE PHYSICIAN: Dr. Durbin. CODE STATUS: Full code. TIME OF EVALUATION: 1:00 a.m. CHIEF COMPLAINT: High blood pressure. HISTORY OF PRESENT ILLNESS: This is a 19-year-old female patient with past medical history of migraines, gestational hypertension, and recently diagnosed with preeclampsia needing the baby delivered for this reason. The patient has been admitted and followed by the [facility] Service. The patient has presented with very severe high blood pressure and very [id number]. On initial presentation, blood pressure was 178/120. The patient does not have any complications or any significant symptoms at the time of my examination. She has been treated with aggressive treatment for hypertension and blood pressure has been very difficult to control. We have discussed the case with [facility]ELOP[facility] doctor. Symptoms were mild to moderate with no clear triggers, no alleviating factors, seems to be related to preeclampsia. REVIEW OF SYSTEMS: CONSTITUTIONAL: No fever, chills, or generalized weakness. RESPIRATORY: No cough, sputum production, or shortness of breath. CARDIOVASCULAR: No chest pain or palpitation. The patient presented with very high blood pressure with systolic 178 with diastolic 120 around 4:25 earlier today. GASTROINTESTINAL: The patient had occasional nausea. No vomiting, diarrhea, or abdominal pain. MEDART OPERATOR: No dizziness, headache, or feeling lightheaded. GENITOURINARY: No burning on urination. EXTREMITIES: No leg swelling. All other systems were reviewed and negative except for the findings mentioned above. PAST MEDICAL HISTORY: As mentioned in the HPI. PSYCHIATRIC HISTORY: Anxiety. SOCIAL HISTORY: No alcohol. No drugs. The patient abuses marijuana. No smoking history. FAMILY HISTORY: History of diabetes to her father's side. The mother has a history of hypertension, she in the 40s. KNOWN ALLERGIES: Ibuprofen . REPORTED MEDICATIONS: 1. Carvedilol 300 mg once a day. 2. Lisinopril 20 mg once a day. 3. Hydrochlorothiazide 12.5 mg once a day. PHYSICAL EXAMINATION: VITAL SIGNS: On presentation, blood pressure 151/101 with heart rate 85, respiratory rate was 16, temperature 98, pain 0, oxygen saturation 100 on room air. GENERAL APPEARANCE: The patient is alert and oriented, not in acute distress. HEENT: Eyes, normal conjunctivae. Moist oral mucosa. Anicteric. No JVD. RESPIRATORY: Bilateral air entry. No rales. No wheezes. Symmetric expansion. CARDIOVASCULAR: Normal rate, regular rhythm. No murmurs. No gallop. No edema. ABDOMEN: Soft, normal bowel sounds. MUSCULOSKELETAL: Baseline range of motion and strength. SKIN: Warm and intact. No pallor. No rash. No redness. Capillary refill seems to intact. NEUROLOGIC: No evidence of any new focal weakness. Cranial nerves seems to be intact. PSYCHIATRIC: The patient is in good mood. No anxiety. Optimal judgment. DIAGNOSTIC STUDIES: EKG was reviewed. The patient has normal sinus rhythm with a rate of 74. LABORATORY DATA: Labs were reviewed. The patient has a white count 9.9, hemoglobin 11.2, MCV 90.7, platelet count 214. Chemistry; sodium 139, potassium 3.6, chloride 103, carbon dioxide 26, anion gap 14, BUN 10, creatinine 0.75, GFR greater than 90, glucose 97, uric acid 6.6, creatinine 9.5, magnesium initially 1.9, second one 4.7 after infusion. LFTs were negative. Alkaline phosphatase 125 and albumin is normal at 3.6, albumin globulin ratio is 1.1. Urine was done and the patient has leukocyte esterase of 250. White count is negative. There are no RBCs. ASSESSMENT AND PLAN: The patient was placed in the hospital by [facility] due to; 1. Preeclampsia with very high levels of blood pressure on presentation. The patient has been treated with aggressive treatment to decrease the blood pressure, but has been very hard to control. We are reconciling medications. Please see my previous consult recommendation and hypertensive medications. If the patient develops any signs of organ damage like severe headache, nausea, vomiting, confusion, chest pain, elevation in BUN and creatinine, the patient should be placed on Cardene drip in ICU for hypertensive emergency. That is not the case as of now, she was asymptomatic during my examination. 2. Normocytic anemia, improved when compared with previous hemoglobin, now is 11.2, before was 9.6, could be related to . 3. Deep venous thrombosis prophylaxis. Thank you very much for allowing us to participate in your patient's care. Feel free to call with any further recommendations and we will be more happy to assist in the management of your patient. Job ID: [id number]
--- NOTE | 2019-05-20 08:27 | PDOC.EVN ---
Event Note - Event Note Event Note: FRANCES [employer] [facility] Delivered sat 05/11....9 days I am at bedside now. Readmitted last PM for BP control, she was supposed to come prior to weekend but decided to self monitor. Meds reviewed: Coreig HCTZ Lisinopril MagSulfate in use S. Feels ok O. Vitals reviewed...last BP 137/90 Respirations wnl NAD Abd soft A/P: Severe PP HTN...required IV labetolol, now better on triple regimine. SCDs on Cont Mag for now Follow BPs
[2019-05-20] MEDS: Carvedilol 6.25 MG TAB PO SCH ×2 (08:41→16:54)
[2019-05-20] MEDS: Lisinopril 20 MG TAB PO SCH ×2 (08:42→21:21)
[2019-05-20] MEDS: Hydrochlorothiazide 25 MG TAB PO SCH (08:43)
--- NOTE | 2019-05-20 10:52 | HP ---
CHIEF COMPLAINT: Headache and elevated blood pressures. HISTORY OF PRESENT ILLNESS: The patient is a 19-year-old female, now day #10, presenting with headache and elevated blood pressures in the emergency room. The patient had her course complicated by preeclampsia and has been home on lisinopril 10 mg twice a day, hydrochlorothiazide 12.5 mg once a day, and labetalol 300 mg twice a day. The patient reports her pressures have been in the 160s all last week, but was very reluctant to come into the hospital. She has been feeling very bad in the last couple of days and her primary OB, Dr. Good finally has convinced her to present. The patient reports that she has been having a headache and just not been feeling well. The patient reports she has been feeling extremely anxious and is concerned that may be also exacerbating her blood pressure. The patient does not report any vision changes. The patient denies fever or chills. She denies shortness of breath. The patient does report she is feeling pressure in her chest. The patient denies diarrhea, constipation, or abdominal pain. PAST MEDICAL HISTORY: 1. Preeclampsia. 2. Anxiety. PAST SURGICAL HISTORY: Appendectomy and D and C. SOCIAL HISTORY: Denies drug, alcohol, or tobacco use. Currently, she reports she used to use marijuana. ALLERGIES: IBUPROFEN AND PSEUDOEPHEDRINE. CURRENT MEDICATIONS: 1. Labetalol 300 mg twice a day. 2. Lisinopril 10 mg twice a day. 3. Hydrochlorothiazide 12.5 mg once a day. PHYSICAL EXAMINATION: VITAL SIGNS: On arrival, blood pressure is 195/118, heart rate of 64, and saturating 100% on room air. GENERAL: The patient appeared to be in no acute distress. She did report feeling anxious and unwell. She is alert, oriented, cooperative, and pleasant to interact with. HEENT: Head is normocephalic and atraumatic. LUNGS: Clear to auscultation bilaterally. HEART: Has regular rate and rhythm. ABDOMEN: Soft. EXTREMITIES: Nontender with minimal edema. LABORATORY DATA: Labs performed in the emergency room shows a white count of 9.9, hemoglobin 11.2, hematocrit 34.7, and platelets 414,000. Sodium 139, potassium 3.6, chloride 103, BUN of 10, creatinine of 0.75, uric acid 6.6, glucose of 97. AST of 13, ALT of 11, alkaline phosphatase of 125, and LDH of 232. Urine is negative for protein. Upon arrival, the patient was aggressively treated with IV blood pressure medications to bring her pressures down and over the course of an hour and a half, the patient was able to come down from the 190s-180s systolic and one teens diastolic, to 150s-140s systolic and 80s diastolic with 140 mg of IV labetalol. ASSESSMENT AND PLAN: The patient is a 19-year-old female, who is having blood pressure exacerbations after diagnosis of preeclampsia. The patient has already been admitted once for this and placed on magnesium for seizure prophylaxis. Given the difficulty in managing her pressures today and the aggressive nature of treatment that was required, the patient has been placed on magnesium sulfate again for seizure prophylaxis. There are no lab abnormalities of concern. The patient is feeling a lot better now that her blood pressures are down. I have consulted Internal Medicine and given her factory nature to her current regimen of three blood pressure medications. Hopefully, they can help us manage her better in the short term and alf. Dr. Good has been updated and he is on vacation. We will be managing the patient in the foreseeable future. Job ID: [id number]
[2019-05-20] MEDS ORDERED: Acetaminophen 500 MG TAB PO PRN (14:14)
--- NOTE | 2019-05-20 18:36 | PDOC.EVN ---
Event Note - Event Note Event Note: HD2 ADmitted last PM 9-10 days PP S. resting..feels ok o. BPs are 120/60s to one 116/71 SCDs in bed Still on Mag A/P: PP resolving severe HTN Continue Mag until 2099 Dr Modesto Clemente) was going to see her today but I stated not needed as stable
[2019-05-20] MEDS ORDERED: FLU VACC QS2019-20(6MOS UP)/PF 60 MCG/0.5 ML SYRINGE IM ONE (21:00)
--- NOTE | 2019-05-20 22:23 | PDOC.EVN ---
Event Note - Event Note Event Note: Mag off...BPs stable and ok To floor
[2019-05-21 00:25] VITALS: BMI 28.3
--- NOTE | 2019-05-21 06:24 | PDOC.EVN ---
Event Note - Event Note Event Note: Patient seen at bedside Feels well BPs reviewed 120-130/80s Meds: Coreg 12.5 BID HCTZ 12.5 QD Lisinopril 20BID OK for DC to home with BP check Monday
--- NOTE | 2019-05-21 07:14 | DIS ---
DATE OF ADMISSION: 05/19/2019 DATE OF DISCHARGE: 05/21/2019 PRINCIPAL DIAGNOSES: 1. state. 2. Urgent hypertension. 3. history of -induced hypertension. HOSPITAL COURSE: In brief, this patient was admitted by Dr. Andersen button reclaimer. The patient was admitted as a 19-year-old with a history of magnesium sulfate at last admission, who presents again with worsening blood pressure. She had been on a regimen of home medication, but blood pressures still were in the 160s systolic. She is a patient Dr. Good. She was admitted for blood pressure management. Internal Medicine was consulted for medication adjustment. This admission, the patient was placed on Coreg, hydrochlorothiazide, and lisinopril. She was placed on magnesium sulfate for 24 hours as conservative management. The patient's blood pressures responded with systolics in the 120s to 130s and diastolics in the 70s to 80s. I evaluated the patient on day of discharge, being May 21, 2019, and found her to be clinically stable with blood pressures as previously dictated. She was sent home on 3 medications suggested by Internal Medicine. She will have followup with blood pressure check on Monday at [facility] [place]. DISCHARGE MEDICATIONS: Include 1. Coreg 12.5 mg one p.o. b.i.d. 2. Hydrochlorothiazide 12.5 mg daily. 3. Lisinopril 20 mg one p.o. b.i.d. Job ID: [id number]
[2019-05-21] MEDS: Lisinopril 20 MG TAB PO SCH (08:28)
[2019-05-21] MEDS: Carvedilol 6.25 MG TAB PO SCH (08:30)
[2019-05-21 11:42] VITALS: BP 130/78; TEMP 98.2
== END 2019-05-21 12:14 | disposition home or self-care (01) | DRG 776 ==
LOC: L&D/OP 17:18 → ERS 17:18 → EDSTATUS 19:48 → L&D 22:45 → 3SW 05-20 23:58
PROVIDERS: ADMIT Obstetrics & Gynecology; ATTEND Obstetrics & Gynecology
DX: O14.15 Severe pre-eclampsia, complicating the puerperium (principal); O99.345 Other mental disorders complicating the puerperium; O90.81 Anemia of the puerperium; D64.89 Other specified anemias; F41.9 Anxiety disorder, unspecified; Z88.8 Allergy status to other drugs, medicaments and biological substances; Z79.899 Other long term (current) drug therapy; Z23 Encounter for immunization
CPT/HCPCS: 36415; 80053; 81003; 81015; 83615; 83735; 84550; 85025; 93005; 99283; J3475